=== PATIENT | male | born 1975 | race Caucasian/White ===

== ENCOUNTER 2018-04-22 14:11 | Emergency (ER) | payer OTHER ==
[2018-04-22] MEDS ORDERED: TETANUS/DIPHTHERIA/PERTUSSIS 0.5 ML SYRINGE IM ONE (14:22)
[2018-04-22] MEDS ORDERED: BUFFERED LIDOCAINE 10 ML SYRINGE IU ONE (14:22)
--- NOTE | 2018-04-22 14:23 | ED Physician Documentation ---
PD HPI UPPER EXT INJURY - Stated complaint Stated Complaint: RT MIDDLE FINGER LAC - Chief complaint Chief Complaint: Laceration - History obtained from History obtained from: Patient - History of Present Illness Location: Right (He cut the dorsum of his right hand while sharpening a knife just prior to arrival) Review of Systems Constitutional: denies: Fever, Chills GI: denies: Abdominal Pain, Nausea, Vomiting : reports: Reviewed and negative PD PAST MEDICAL HISTORY - Past Medical History Past Medical History: Yes Endocrine/Autoimmune: Type 2 diabetes - Present Medications Home Medications: Ambulatory Orders Medication Instructions Recorded Confirmed Aspirin Chewable [[place] 1 04/22/18 Aspirin] Atorvastatin [Lipitor] 1 04/22/18 Exenatide Microspheres [Bydureon 1 04/22/18 Pen] Insulin Glargine [Lantus Solostar] 1 04/22/18 Lisinopril 20 04/22/18 Omeprazole 10 mg PO 04/22/18 metFORMIN [Glucophage] 1 04/22/18 - Allergies Allergies/Adverse Reactions: Allergies Allergy/AdvReac Type Severity Reaction Status Date / Time No Known Drug Allergies Allergy Verified 04/22/18 14:16 - Social History Does the pt drink ETOH?: No Does the pt have substance abuse?: No - Family History Family history: reports: Non contributory PD ED PE NORMAL - Vitals Vital signs reviewed: Yes - General General: Alert and oriented X 3, No acute distress - Extremities Extremities: Other (There is a 1 cm horizontal last ration over the third MCP dorsally. Extensor tendon strength and neurovascular status is normal. The tendon will be more further assessed during laceration repair note.) - Neuro Neuro: Alert and oriented X 3, Normal speech Results - Vitals Vitals: Vital Signs - 24 hr 04/22/18 14:13 Temperature 36.3 C L Heart Rate 97 Respiratory 18 Rate Blood Pressure 146/121 H O2 Saturation 99 Oxygen O2 Source Room air Procedures - Laceration (location) R hand Length in cm: 1 Wound type: Linear Neurovascular status: Sensory intact, Motor intact, Vascular intact Tendon involvement: Tendon intact (but had a tiny wojciech not all the way through, does not need specialist or repair) Anesthesia: Lidocaine 1%, With bicarb Wound Preparation: Hibiclens, Irrigated copiously NS Skin layer closure: Nylon, Interrupted, Size #-0 - enter number (4-0), Sutures - enter # (3) Other: Tetanus booster given Complexity: Simple Departure - Departure Disposition: 01 Home, Self Care Clinical Impression: Laceration Condition: Good Record reviewed to determine appropriate education?: Yes Instructions: ED Laceration Hand Comments: Come back for any signs of infection which would include: Redness, swelling, drainage, increased pain, or fevers. Follow-up with your physician in 14 days for suture removal. Your blood pressure was elevated today on check into the emergency department. This does not mean that you have hypertension, it is a common phenomenon to come to the emergency department and have elevated blood pressure. I recommend that you see your primary care physician within the week to have it rechecked when you are feeling better.
[2018-04-22 14:54] VITALS: BP 129/84
== END 2018-04-22 14:56 | disposition home or self-care (01) ==
LOC: ED 14:11
DX: S61.212A Laceration without foreign body of right middle finger without damage to nail, initial encounter (principal); W26.0XXA Contact with knife, initial encounter; R03.0 Elevated blood-pressure reading, without diagnosis of hypertension; E11.9 Type 2 diabetes mellitus without complications; Z79.82 Long term (current) use of aspirin; Z23 Encounter for immunization
CPT/HCPCS: 12001; 90471; 99282; 99283

== ENCOUNTER 2021-09-17 14:51 | Emergency (ER) | payer OTHER ==
[2021-09-17 15:03] VITALS: BP 137/88
--- NOTE | 2021-09-17 15:26 | XRAY Report ---
PROCEDURE: Wrist 4 View RT INDICATIONS: Trauma TECHNIQUE: 4 views of the wrist were acquired. COMPARISON: None. FINDINGS: Bones: No acute fractures or dislocations. No suspicious bony lesions. Prior ulnar styloid fracture . Scaphoid view: Intact. Soft tissues: No suspicious soft tissue calcifications. No radiopaque foreign body. IMPRESSION: No acute osseous abnormality. Reviewed by: Oscar Aguilar MD on 09/17/2021 3:25 PM PDT Approved by: Oscar Aguilar MD on 09/17/2021 3:25 PM PDT Station ID: [id number]
--- NOTE | 2021-09-17 15:34 | ED Physician Documentation ---
PD HPI UPPER EXT INJURY - Stated complaint Stated Complaint: RT WRIST INJ - Chief complaint Chief Complaint: Ext Problem - History obtained from History obtained from: Patient - Additonal information Additional information: The patient comes to the emergency department chief complaint of right wrist pain after getting his wrist caught in a dry creek trap. Patient states he was trying to get a read out of the way and the trap had been set in the water. The patient states that he accidentally tripped the wire and the blunt ends of the trap came together, closing over his wrist. Patient states this happened just this afternoon. He has pain across the radial aspect of the dorsum of his right wrist. Patient states that he he mostly has intact range of motion. No numbness or tingling in his fingers. No other complaints at this time. Review of Systems Ten Systems: 10 systems reviewed and negative Constitutional: reports: Reviewed and negative Eyes: reports: Reviewed and negative Ears: reports: Reviewed and negative Nose: reports: Reviewed and negative Throat: reports: Reviewed and negative Cardiac: reports: Reviewed and negative Respiratory: reports: Reviewed and negative GI: reports: Reviewed and negative : reports: Reviewed and negative Skin: reports: Reviewed and negative Musculoskeletal: reports: Joint pain Neurologic: reports: Reviewed and negative Psychiatric: reports: Reviewed and negative Endocrine: reports: Reviewed and negative Immunocompromised: reports: Reviewed and negative PD PAST MEDICAL HISTORY - Past Medical History Cardiovascular: None Respiratory: None Neuro: None Endocrine/Autoimmune: Type 2 diabetes GI: None : None HEENT: None Psych: None Musculoskeletal: Scoliosis Derm: None - Past Surgical History Past Surgical History: Yes General: Appendectomy HEENT: Tonsil/Adenoidectomy - Present Medications Home Medications: Ambulatory Orders Medication Instructions Recorded Confirmed Aspirin Chewable [[place] Luis 1 04/22/18 Aspirin] Atorvastatin [Lipitor] 1 04/22/18 Exenatide Microspheres [Bydureon 1 04/22/18 Pen] Insulin Glargine [Lantus Solostar] 1 04/22/18 Omeprazole 10 mg PO 04/22/18 lisinopriL [Lisinopril] 20 04/22/18 metFORMIN [Glucophage] 1 04/22/18 - Allergies Allergies/Adverse Reactions: Allergies Allergy/AdvReac Type Severity Reaction Status Date / Time No Known Drug Allergies Allergy Verified 09/17/21 14:58 - Social History Does the pt smoke?: No Smoking Status: Never smoker Does the pt drink ETOH?: No Does the pt have substance abuse?: No - Immunizations Immunizations are current?: No - POLST Patient has POLST: No PD ED PE NORMAL - Vitals Vital signs reviewed: Yes - General General: Alert and oriented X 3, No acute distress, Well developed/nourished - HEENT HEENT: Atraumatic, PERRL, EOMI, Moist mucous membranes - Neck Neck: Supple, no meningeal sign - Cardiac Cardiac: Strong equal pulses - Respiratory Respiratory: No respiratory distress - Derm Derm: Normal color, Warm and dry, No rash - Extremities Extremities: No deformity, No edema, Other (Tenderness palpation of the radial aspect of right wrist dorsum.) - Neuro Neuro: Alert and oriented X 3, cancer program consultant 2-12 intact, No motor deficit, No sensory deficit, Normal speech - Psych Psych: Normal mood, Normal affect Results - Vitals Vitals: Oxygen O2 Source Room air - Rads (name of study) Right wrist x-ray series Radiology: Final report received, EMP read indepedently, See rad report (Negative) PD MEDICAL DECISION MAKING - ED course Complexity details: reviewed results, re-evaluated patient, considered differential, d/w patient ED course: The patient was worked up with x-ray series of his right wrist, which was unremarkable. We have discussed home management of the symptoms, as well as usual indications for return.. Departure - Departure Disposition: 01 Home, Self Care Clinical Impression: Contusion of wrist, right Qualifiers: Encounter type: initial encounter Qualified Code(s): S60.211A - Contusion of right wrist, initial encounter Condition: Stable Instructions: ED Contusion Upper Ext Comments: Your x-ray looks good. The radiologist is read as negative. You may use ice and ibuprofen to help with the discomfort. Please follow-up with your primary care physician if needed. You may use the wrist as much as you feel comfortable doing so. Discharge Date/Time: 09/17/21 15:52
== END 2021-09-17 15:52 | disposition home or self-care (01) ==
LOC: ED 14:51
DX: S60.211A Contusion of right wrist, initial encounter (principal); W23.0XXA Caught, crushed, jammed, or pinched between moving objects, initial encounter; Y93.89 Activity, other specified; Y99.0 Civilian activity done for income or pay
CPT/HCPCS: 1040M; 73110; 99282; 99283

== ENCOUNTER 2023-03-24 16:21 | Outpatient (CLI) | payer OTHER ==
--- NOTE | 2023-03-25 09:32 | MRI Report ---
PROCEDURE: SHOULDER WO - LT INDICATIONS: LEFT SHOULDER PAIN TECHNIQUE: Noncontrast oblique coronal T2 fast spin echo with fat saturation, oblique sagittal T1 spin echo and T2 fast spin echo with fat saturation, axial T1 spin echo and T2 fast spin echo with fat saturation t hrough the shoulder. COMPARISON: None. FINDINGS: Image quality: Excellent. Rotator cuff: Low-grade articular and bursal surface partial-thickness tear involving distal supraspi natus at its insertion on humeral head is seen extending to musculotendinous region. Distal infraspin atus tendinosis and low-grade articular surface partial-thickness tear is also noted. Distal subscapu bijan tendinosis is seen. No full-thickness rotator cuff tendon rupture. No rotator cuff muscle atrop hy on sagittal images. Bones and bursae: No bone marrow contusions or fractures. [id number] acromioclavicular joint o steoarthritic changes are seen with joint space narrowing, subchondral sclerosis and small downward o steophyte formation depressing on musculotendinous junction of supraspinatus. The acromion demonstrat es conventional anatomy, without an os acromiale. No pathologic subacromial/subdeltoid bursal fluid is present. Capsule and soft tissues: There is signal abnormality and fraying of superior anterior labrum at 1 to 2:00 position suggestive of superior anterior labral tear. The long head of the biceps tendon demons trates normal location and morphology. The rotator interval appears normal, without fibrosis. The c oracohumeral ligament is normal in thickness. IMPRESSION: 1. Low-grade articular and bursal surface partial-thickness tear involving distal supraspinatus exten ding to musculotendinous junction. Low-grade articular surface partial-thickness tear involving dista l infraspinatus. Distal subscapularis tendinosis. No full-thickness rotator cuff tendon rupture. 2. Mild to moderate acromioclavicular joint osteoarthritis. No fracture or dislocation. No significan t joint effusion or subacromial subdeltoid bursal fluid. 3. Suggestion of superior anterior labral tear at 1 to 2:00 position. Reviewed by: Arnel Fuller MD on 03/25/2023 9:31 AM PDT Approved by: Arnel Fuller MD on 03/25/2023 9:31 AM PDT Station ID: [id number]
== END 2023-03-24 16:22 | disposition home or self-care (01) ==
LOC: DI 16:21
PROVIDERS: ATTEND Nurse Practitioner Family
DX: M75.112 Incomplete rotator cuff tear or rupture of left shoulder, not specified as traumatic (principal); M19.012 Primary osteoarthritis, left shoulder